=== PATIENT | female | born 1950 | race Caucasian/White ===

== ENCOUNTER 2018-12-08 07:52 | Day surgery (SDC) | payer MEDICARE, MEDICAID ==
[2018-12-04 11:50] LABS: CLARITY,URINE CLEAR (Clear); COLOR,URINE YELLOW (Yellow); GLUCOSE, URINE NEGATIVE (Neg); KETONES,URINE NEGATIVE (Neg); LEUKOCYTE ESTERASE ,URINE NEGATIVE (Neg); NITRITES, URINE NEGATIVE (Neg); OCCULT BLOOD,URINE NEGATIVE (Neg); PROTEIN,URINE NEGATIVE (Neg); UROBILINOGEN,URINE 0.2 E.U/dL (0.2-1.0)
[2018-12-04 11:51] LABS: UA COLLECTION TYPE NON-SPECIFIED
[2018-12-04 11:52] LABS: BASOPHILS # (AUTO) 0.1 X10'3 (0-0.2); EOSINOPHILS # (AUTO) 0.1 X10'3 (0-0.9); EOSINOPHILS % (AUTO) 2.2 % (0-6); LYMPHOCYTES # (AUTO) 2.3 X10'3 (1.1-4.8); LYMPHOCYTES % (AUTO) 37.9 % (21-51); MEAN CORPUSCULAR HGB CONC 32.7 g/dL (33.0-36.5); MEAN CORPUSCULAR VOLUME 91.8 FL (78-98); MEAN PLATELET VOLUME 9.3 FL (7.4-10.4); MONOCYTES # (AUTO) 0.4 X10'3 (0-0.9); MONOCYTES % (AUTO) 6.5 % (2-12); NEUTROPHILS # (AUTO) 3.1 X10'3 (1.8-7.7); NEUTROPHILS % (AUTO) 52.4 % (42-75); PRE OP HEMATOCRIT 43.1 % (35.0-45.0); PRE OP HEMOGLOBIN 14.1 g/dL (12.0-16.0); PRE OP PLATELET COUNT 339 X10'3 (140-440); RED CELL DISTRIBUTION WIDTH 14.9 % (11.5-14.5)
[2018-12-04 12:24] LABS: ALANINE AMINOTRANSFERASE 20 U/L (12-78); ALBUMIN/GLOBULIN RATIO 1.3 (1.1-1.5); ALKALINE PHOSPHATASE 67 IU/L (46-116); ANION GAP 6 (8-16); ASPARTATE AMINO TRANSFERASE 16 U/L (10-37); BILIRUBIN,TOTAL 0.3 MG/DL (0.1-1.0); BLOOD UREA NITROGEN 8 MG/DL (7-18); BUN/CREATININE RATIO 9.6 (6.6-38.0); CALCIUM 9.4 MG/DL (8.5-10.1); CHLORIDE 106 MMOL/L (99-107); CREATININE 0.83 MG/DL (0.40-0.90); GLUCOSE 90 MG/DL (70-104); POTASSIUM 3.5 MMOL/L (3.5-5.1); SODIUM 142 MMOL/L (135-145); TOTAL CARBON DIOXIDE 30.1 MMOL/L (24-32); TOTAL PROTEIN 7.2 G/DL (6.4-8.2); eGFR 69 ML/MIN
[~2018-12-08] VITALS: Ht 157.5 cm; Wt 66.5 kg
[2018-12-08] VITALS (9 sets, daily range): BP systolic 127–155; BP diastolic 71–99
[~2018-12-08 07:52] MED LIST: ALBU18HF2 INH; AMLO10TA PO; ASPI-611 PO; CYCL-1 PO; LISI-600 PO; METF-436 PO; PRAV40TA3 PO; albuterol 2.5 MG/3 ML nebule NEB ONE; ceFAZolin 2gm in dextrose, iso 100 ML IV ONE; famotidine 20mg tablet PO ONE; ringers solution, lacted 1,000 ML IV SCH
[2018-12-08] MEDS ORDERED: ROPIVAcaine 0.5% (5mg/ml) 30ml vial ONE (11:06)
[2018-12-08] MEDS ORDERED: sevoflurane 250ml liquid IH ONE (11:23)
[2018-12-08] MEDS ORDERED: fentaNYL/PF 50MCG/1 ML 2ML syringe ONE ×2 (11:26→11:46)
[2018-12-08] MEDS ORDERED: midazolam 2 mg/2 ml injection ONE (11:26)
[2018-12-08] MEDS ORDERED: LIDOcaine 2% (20mg/ml) 5ml vial ONE (11:37)
[2018-12-08] MEDS ORDERED: propofol inj 20 ML IV ONE (11:37)
[2018-12-08] MEDS ORDERED: ondansetron/PF 4mg/2ml inj ONE (12:10)
[2018-12-08] MEDS ORDERED: ringers solution, lacted 1,000 ML IV SCH (12:16)
[2018-12-08] MEDS ORDERED: morphine 4 MG/ML inj SYRINge IV PRN ×2 (12:20)
[2018-12-08] MEDS ORDERED: meperidine/PF 25mg/ml syringe IV PRN ×3 (12:20)
[2018-12-08] MEDS ORDERED: proCHLORperazine 10 MG/2 ml inj IV PRN (12:20)
[2018-12-08] MEDS ORDERED: ondansetron/PF 4mg/2ml inj IV PRN (12:20)
--- NOTE | 2018-12-08 12:25 | NUR ---
Received from OR via BED , accompanied by Anesthesiologist DR TORRES and report given by Anesthesiolgist. PATIENT WAKING UP, DENIES PAIN, V/S WNL, NEUROVASCULAR CHECKS INTACT, 20G PIV LUE, SCD ON, EXTERIOR ANAL DRESSING CDI.
--- NOTE | 2018-12-08 13:25 | NUR ---
PATIENT A&OX4, DENIES PAIN, V/S WNL, NEUROVASCULAR CHECKS INTACT, 20G PIV LUE D/C, SCD OFF, BUTTOCKS DRESSING CDI.. I HAVE REVIEWED D/C INSTRUCTIONS WITH PATIENT AND FAMILY HAVE VERBALIZED UNDERSTANDING.PATIENT WAS D/C HOME WITH ALL BELONGINGS AND FAMILY GAVE TRANSPORT HOME.
== END 2018-12-08 13:25 | disposition home or self-care (01) ==
LOC: PAS 07:52
PROVIDERS: ATTEND Surgery
DX: K64.2 Third degree hemorrhoids (principal); K64.8 Other hemorrhoids; E11.9 Type 2 diabetes mellitus without complications; J45.909 Unspecified asthma, uncomplicated; K64.4 Residual hemorrhoidal skin tags; J44.9 Chronic obstructive pulmonary disease, unspecified; I10 Essential (primary) hypertension; Z79.899 Other long term (current) drug therapy
CPT/HCPCS: 36415; 45330; 46947; 46999; 80053; 81003; 82948; 85025; 93005; 94640; A6224; A6449; J0690; J2001; J2175; J2250; J2405; J2704; J3010; J7120; 88304; A7000; J2795